=== PATIENT | male | born 1945 | race Caucasian/White ===

== ENCOUNTER → 2017-05-19 | Outpatient (CLI) | payer MEDICARE ==
[2014-02-17 10:21] VITALS: BP 105/60
[~2017-05-19] MED LIST: AMLO1CAP6 PO; ATOR10TA60 PO; BUPR200T PO; CALC0.25 PO; GABA600T2 PO; INSU100C4 SQ; INSU100I18 SQ; LEVO175T5 PO; LORA1TAB PO; OMEP20TA8 PO; SERT100T8 PO; TAMS0.4C97 PO; TEMA30CA PO
--- NOTE | 2017-05-19 15:54 | KCIC ---
CHEST PA LATERAL History: COPD, shortness of air for 6 months Comparison: October 25, 2012 Findings: 2 views of the chest are submitted. There is no infiltrate, pneumothorax, or effusion. Cardiac silhouette is stable, considered within normal limits. There is likely emphysema. There is multilevel thoracic spondylosis. Impression: 1. There is likely emphysema. No acute radiographic abnormality is identified. Electronically signed by: Yariel Ordonez MD (05/19/2017 3:51 PM) [id number]
== END | disposition home or self-care (01) ==
LOC: KCIC 15:28
PROVIDERS: ATTEND Internal Medicine Pulmonary Disease
DX: J44.9 Chronic obstructive pulmonary disease, unspecified (principal); M47.894 Other spondylosis, thoracic region
CPT/HCPCS: 71020